=== PATIENT | male | born 1965 | race Caucasian/White ===

== ENCOUNTER 2019-01-23 11:04 | Inpatient (IN) | payer OTHER ==
[2019-01-22 15:24] VITALS: Ht 182.9 cm; Wt 98.9 kg
[~2019-01-23] VITALS: Ht 182.9 cm; Wt 98.9 kg
[2019-01-23] VITALS (31 sets, daily range): BP systolic 103–162; BP diastolic 72–112; PULSE 66–80; RESP 12–18
[~2019-01-23 11:04] MED LIST: SOD CHLORIDE 0.9% 1,000 ML IV SCH
[2019-01-23] MEDS ORDERED: LISI-471 ORAL (12:05)
[2019-01-23] MEDS ORDERED: TAMS0.4C2 ORAL (12:05)
--- NOTE | 2019-01-23 14:10 | RADRPT ---
Vent Rate: 73 bpm RR Interval: 0 msec AL Interval: 134 msec QRS Duration: 98 msec QT Interval: 408 msec QTC Interval: 449 msec P-R-T Arnold: 49 - 49 - 114 degrees Normal sinus rhythm T wave abnormality, consider inferior ischemia Abnormal ECG Electronically Signed By: Haresh Martinez
--- NOTE | 2019-01-23 14:23 | PREAC ---
Date/Time of Note Date/Time of Note DATE: 01/23/19 TIME: 14:21 Anesthesia Eval and Record Evaluation Time Pre-Procedure Interview DATE: 01/23/19 TIME: 14:21 Age 53 Sex male NPO: 8 hrs Preoperative diagnosis Right inguinal hernia Planned procedure Open hernia repair with mesh Past Medical History Past Medical History: Includes Cardio: HTN Pulm: Smoking Hx Surgery & Anesthesia Issues No known issue Meds Anticoagulation: No Beta Jazz within 24 hr: No Reason Beta Jazz not given: Pt. not on B-Jazz Reported Medications Lisinopril* (Lisinopril*) 20 Mg Tablet, 1 TAB ORAL DAILY 01/23/19 Tamsulosin Hcl* (Tamsulosin Hcl*) 0.4 Mg Cap.er.24h, 1 CAP ORAL HS 01/23/19 Current Medications Cefazolin Sodium/ Dextrose 50 ml @ 100 mls/hr PRE-OP IVPB ; Start 01/23/19 at 08 :00 Sodium Chloride 1,000 ml @ 75 mls/hr [id number] IV ; Start 01/23/19 at 08:00; Stop 01/23/19 at 20:00 Meds reviewed: Yes Allergies Coded Allergies: No Known Drug Allergy (Verified Allergy, Unknown, 01/23/19) Allergies Reviewed: Yes Labs/Studies Labs Reviewed: Reviewed by anesthesiologist Result Diagram: 01/23/19 1220 01/23/19 1220 Laboratory Tests 01/23/19 12:20 test: N/A Pre-procedure Exam Last vitals Vital Signs Date Temp Pulse Resp B/P (MAP) Pulse Ox O2 O2 Flow FiO2 Time Delivery Rate 01/23/19 98.6 77 16 147/100 98 Room Air 12:46 (116) Airway: Adequate mouth opening Mallampati: Mallampati II Teeth: Normal Lung: Normal Heart: Normal ASA Physical Status ASA physical status: 2 Emergency: None Planned Anesthetic General/MAC: ETT Planned Pain Management Parenteral pain med Pre-operative Attestations Prior to commencing anesthesia and surgery, the patient was re-evaluated, there was verification of: *The patient's identity *The results of appropriate recent lab work and preoperative vital signs *The above evaluation not changing prior to induction *Anesthetic plan, risk benefits, alternative and complications discussed with patient/family; questions answered; patient/family understands, accepts and wishes to proceed. TODD JOSUE MD Jan 23, 2019 14:23
[2019-01-23] MEDS ORDERED: POLYMYXIN/BACITRACIN 1L IRRIG ONE (14:26)
[2019-01-23] MEDS ORDERED: BUPIVACAINE 0.25% (MPF) 30 ML INJ ONE (14:26)
[2019-01-23] MEDS ORDERED: PROPOFOL 20 ML ONE (14:31)
[2019-01-23] MEDS ORDERED: MEPERIDINE 100 MG INJ ONE (14:31)
[2019-01-23] MEDS ORDERED: ROCURONIUM 50 MG INJ ONE (14:31)
[2019-01-23] MEDS ORDERED: LIDOCAINE 2% (SDV) 5 ML INJ ONE (14:31)
[2019-01-23] MEDS ORDERED: GLYCOPYRROLATE 0.4 MG INJ ONE ×3 (14:31→15:00)
[2019-01-23] MEDS ORDERED: SUCCINYLCHOLINE CHLORIDE 100 MG/5 ML SYG IV ONE (14:31)
[2019-01-23] MEDS ORDERED: NEOSTIGMINE 10 MG INJ ONE (15:00)
[2019-01-23] MEDS ORDERED: CEFAZOLIN 1 GM INJ ONE (15:00)
[2019-01-23] MEDS ORDERED: POLYMYXIN/BACITRACIN 1L IRRIG IRR ONE (15:19)
[2019-01-23] MEDS ORDERED: HYDROmorphONE 1 MG/5 ML IV SYRINGE IV PRN ×3 (15:30)
[2019-01-23] MEDS ORDERED: MIDAZOLAM 1 MG/ML 2 ML INJ IV PRN (15:30)
[2019-01-23] MEDS ORDERED: hydrALAzine 20 MG INJ IV PRN (15:30)
[2019-01-23] MEDS ORDERED: METOCLOPRAMIDE 10 MG INJ IV PRN (15:30)
[2019-01-23] MEDS ORDERED: OXYCODONE/ACETAMINOPHEN (5/325) TAB PO PRN ×2 (15:30)
[2019-01-23] MEDS ORDERED: ONDANSETRON 4 MG INJ IV PRN (15:30)
[2019-01-23] MEDS ORDERED: MEPERIDINE 25 MG INJ IV PRN (15:30)
[2019-01-23] MEDS ORDERED: FENTAnyl 50 MCG/ML VIAL IV PRN ×3 (15:30)
[2019-01-23] MEDS ORDERED: DIPHENHYDRAMINE 50 MG INJ IV PRN (15:30)
[2019-01-23] MEDS ORDERED: EPHEDrine SULFATE 50 MG/5 ML SYG IV PRN (15:30)
[2019-01-23] MEDS ORDERED: LABETALOL HCL 20MG INJ IV PRN (15:30)
--- NOTE | 2019-01-23 15:41 | OPR ---
Date/Time of Note Date/Time of Note DATE: 01/23/19 TIME: 15:36 Operative Report Procedure Date: Jan 23, 2019 Preoperative Diagnosis large incarcerated right inguinal hernia Postoperative Diagnosis same Operation/Procedure Performed 1. open right large incarcerated inguinal hernia repair with large ultrapro hernia system mesh 2. subcutaneous injection of therapeutic local anesthesia Surgeon see signature line Basket Filler none Anesthesia Type: general Estimated Blood Loss: 10 - 50 ml's Transfusion none Specimen hernia sac Grafts/Implants none Complications none Pt Condition Post Procedure: stable Indications This is a 53-year-old male with incarcerated right inguinal hernia. He has pain and request surgical repair. Risks alternatives benefits and percent were discussed the patient. In particular due to the very large incarcerated inguinal hernia potential complications including but not limited to bleeding infection mesh infection recurrence of hernia need for additional operations were discussed the patient. Ample time was given for questions and all questions were answered and patient consents to the operation. Procedure Description Patient is taken to the OR and prepped and draped in usual sterile fashion. Surgical time was performed. IV antibiotics given. Right inguinal oblique incision made with a 10 blade. Dissection with cautery carried onto the external fascia. Upon initial inspection there is a very large incarcerated hernia. The external oblique is opened with a 15 blade. This incision extended medial fairly lateral sparely with Metzenbaum scissors. Cord structures identified and encircled with a [place] drain. A large indirect hernia is identified and lysis of adhesions performed to manually reduce the hernia. The excess hernia sac was then suture ligatured with 0 Vicryl. The excess hernia sac was then excised and sent for specimen. The large ultra pro hernia system mesh was then used to secure and posterior this area and block this area. Running 0 Prolene from the pubic tubercle along the shelving is unlimited was used to secure the disc portion of the ultra pro hernia system mesh in place. Superiorly the disc is secured with interrupted 3-0 Vicryl. [place] mesh is secured in a similar fashion with a running Prolene from the pubic tubercle along the shelving is unlimited. Superiorly the mesh was secured to enter oblique with interrupted 0 Vicryl. Straps are created and reapproximated around the cord structures to recreate the inguinal ring with interrupted 0 Prolene. Externally fascia is closed with running 3-0 Vicryl. No's fascia was closed with interrupted 3-0 Vicryl. Skin is closed with inzorb observable skin stap ler. Delvin MCCORMICK Jan 23, 2019 15:41
[2019-01-23] MEDS ORDERED: HYDROCODONE/APAP (5/325) TAB PO ONE (16:00)
[2019-01-23] MEDS: CEFAZOLIN 2 GM/50 ML (PMX) 50 ML IVPB SCH ×2 (16:22→17:19)
[2019-01-23] MEDS ORDERED: NALOXONE (0.4 MG/ML) INJ ONE (17:11)
--- NOTE | 2019-01-23 17:12 | PAC ---
Date/Time of Note Date/Time of Note DATE: 01/23/19 TIME: 17:11 Post-Anesthesia Notes Post-Anesthesia Note Last documented vital signs Vital Signs Date Temp Pulse Resp B/P (MAP) Pulse Ox O2 O2 Flow FiO2 Time Delivery Rate 01/23/19 67 13 148/95 95 Nasal 2.0 16:47 (112) Cannula 01/23/19 98.1 15:52 Activity: WNL Respiratory function: WNL Cardiovascular function: WNL Mental status: Baseline Pain reasonably controlled: Yes Hydration appropriate: Yes Nausea/Vomiting absent: Yes TODD JOSUE MD Jan 23, 2019 17:12
[2019-01-23] MEDS ORDERED: NALOXONE (0.4 MG/ML) INJ IV ONE (17:30)
[2019-01-23] MEDS ORDERED: morphine 2 MG INJ IV PRN (18:00)
[2019-01-23] MEDS: SOD CHLORIDE 0.45% 1,000 ML IV SCH ×2 (19:45→20:00)
[2019-01-24] MEDS ORDERED: ACETAMINOPHEN 500 MG TAB PO PRN
[2019-01-24] MEDS ORDERED: ONDANSETRON 4 MG INJ IV PRN
[2019-01-24] MEDS ORDERED: hydrALAzine 20 MG INJ IV PRN
[2019-01-24 00:56] VITALS: BP 129/77; PULSE 86; RESP 18
--- NOTE | 2019-01-24 02:56 | HP ---
DATE OF ADMISSION: 01/23/2019 CHIEF COMPLAINT AND HISTORY OF PRESENT ILLNESS: The patient is a 53-year-old gentleman with a histor y of hypertension, BPH, who had been seeing Dr. Francois as an outpatient for incarcerated right inguinal hernia. The patient was brought into hospital today and underwent open right large incarcerated ingu inal hernia repair with large mesh. The patient had significant postoperative pain and is being admi tted for further evaluation and management. The patient denied any chest pain or shortness of breath . No history of nausea, vomiting. No history of headache, dizziness, syncope. No history of leg pa in. No history of leg edema. No history of focal weakness. REVIEW OF SYSTEMS: Other than postoperative pain, the rest of review of systems is unremarkable. PAST MEDICAL HISTORY: As stated above. ALLERGIES: NO KNOWN DRUG ALLERGIES. FAMILY HISTORY: Noncontributory. SOCIAL HISTORY: History of smoking. PHYSICAL EXAMINATION: GENERAL: Reveals patient to be awake and responsive. VITAL SIGNS: At the time of admission, temperature 98.6, pulse 77, respirations 16, blood pressure 1 47/100, O2 sat 98 on room air. HEENT: Atraumatic, normocephalic. Conjunctivae and lids are normal. Oropharynx is clear. NECK: No mass. LUNGS: Clear. CARDIOVASCULAR: S1, S2 normal. ABDOMEN: Soft, nondistended. EXTREMITIES: No leg edema. NEUROLOGIC: The patient is awake, alert with no gross focal deficit. LABORATORY DATA: Sodium 145, potassium 4.4, BUN 27, creatinine 1.5, glucose 94. Liver enzymes are n ormal. WBC 5.4, hemoglobin 13.6, platelet 217. Coagulation profile is normal. DIAGNOSTIC DATA: Chest x-ray did not reveal any acute changes, mild cardiomegaly. IMPRESSION: 1. Large incarcerated inguinal hernia, status post open right large incarcerated inguinal hernia rep air with mesh. 2. Hypertension. 3. Chronic kidney disease stage II/III. PLAN: The patient will be admitted to the medical floor. The patient will be started on diet and wi ll be given IV fluids, Tylenol, Percocet and IV morphine for pain control. The patient will be brad nued on postoperative fluid. We will do followup BMP. If the patient's creatinine gets worse, then nephrology consult will be obtained. We will also add p.r.n. hydralazine. We will use SCD for DVT p rophylaxis. The patient's home medications including lisinopril and Flomax will be resumed. Further recommendation will depend on patient's hospital course. Dictated By: STEVE العلي/RENEA Conf#: [id number] DID#: [id number] CC: TRACEY FRANCOIS MD;*EndCC*
[2019-01-24] MEDS: CEFAZOLIN 2 GM/50 ML (PMX) 50 ML IVPB SCH (03:46)
[2019-01-24 05:00] VITALS: BP 134/76; PULSE 75; RESP 18
[2019-01-24] MEDS: SOD CHLORIDE 0.45% 1,000 ML IV SCH ×2 (05:45→16:01)
[2019-01-24 08:00] VITALS: BP 141/81; PULSE 80; RESP 18
[2019-01-24] MEDS: OXYCODONE/ACETAMINOPHEN (5/325) TAB PO PRN ×2 (08:38→14:07)
[2019-01-24 08:40] VITALS: BP 145/83; PULSE 85; RESP 18
[2019-01-24] MEDS: LISINOPRIL 20 MG TAB PO SCH (08:41)
--- NOTE | 2019-01-24 10:26 | PN ---
Date/Time of Note Date/Time of Note DATE: 01/24/19 TIME: 10:25 Assessment/Plan VTE Prophylaxis Risk score (from Ns)>0 risk: 3 SCD applied (from Ns): Yes Pharmacological prophylaxis: LMWH Lines/Catheters IV Catheter Type (from Nrs): Peripheral IV Assessment/Plan Hospital Course 1. Large incarcerated inguinal hernia, status post open right large incarcerated inguinal hernia repair with mesh. 2. Hypertension. 3. Chronic kidney disease stage II/III. Result Diagram: 01/23/19 1220 01/24/19 0430 Results 24hrs Laboratory Tests Test 01/23/19 12:20 01/24/19 04:30 White Blood Count 5.4 Red Blood Count 4.78 Hemoglobin 13.6 L Hematocrit 42.2 Mean Corpuscular Volume 88.3 Mean Corpuscular Hemoglobin 28.5 L Mean Corpuscular Hemoglobin Concent 32.2 Red Cell Distribution Width 13.5 Platelet Count 217 Mean Platelet Volume 11.1 H Immature Granulocytes % 0.400 Neutrophils % 71.8 Lymphocytes % 17.8 Monocytes % 7.4 Eosinophils % 1.9 Basophils % 0.7 Nucleated Red Blood Cells % 0.0 Immature Granulocytes # 0.020 Neutrophils # 3.9 Lymphocytes # 1.0 Monocytes # 0.4 Eosinophils # 0.1 Basophils # 0.0 Nucleated Red Blood Cells # 0.0 Prothrombin Time 12.5 Prothrombin Time Ratio 1.0 INR International Normalized Ratio 0.92 Activated Partial Thromboplast Time 27.8 Sodium Level 144 139 Potassium Level 4.4 3.9 Chloride Level 107 104 Carbon Dioxide Level 28 27 Anion Gap 9 8 Blood Urea Nitrogen 27 H 26 H Creatinine 1.55 H 1.42 H Est Glomerular Filtrat Rate mL/min 47 L 52 L Glucose Level 94 104 Calcium Level 9.3 8.6 Total Bilirubin 1.1 Direct Bilirubin 0.00 Indirect Bilirubin 1.1 Aspartate Amino Transf (AST/SGOT) 43 Alanine Aminotransferase (ALT/SGPT) 34 Alkaline Phosphatase 78 Total Protein 7.5 Albumin 4.3 Globulin 3.20 Albumin/Globulin Ratio 1.34 Subjective 24 Hr Interval Summary Free Text/Dictation Patient has pain at area of surgery, eating Exam/Review of Systems Exam Vitals Vital Signs Date Temp Pulse Resp B/P (MAP) Pulse Ox O2 O2 Flow FiO2 Time Delivery Rate 01/24/19 98.4 85 18 145/83 92 Nasal 08:40 (103) Cannula 01/24/19 2.0 05:00 Intake and Output 01/23/19 01/23/19 01/24/19 1515:00 23:00 07:00 IntakeIntake Total 300 ml 1000 ml OutputOutput Total 210 ml 300 ml BalanceBalance 90 ml 700 ml Constitutional: well developed Head: normocephalic, atraumatic Neck: supple Respiratory: clear to auscultation Cardiovascular: regular rate and rhythm Gastrointestinal: soft, non-tender Extremities: normal pulses Results Results 24hrs Laboratory Tests Test 01/23/19 12:20 01/24/19 04:30 White Blood Count 5.4 Red Blood Count 4.78 Hemoglobin 13.6 L Hematocrit 42.2 Mean Corpuscular Volume 88.3 Mean Corpuscular Hemoglobin 28.5 L Mean Corpuscular Hemoglobin Concent 32.2 Red Cell Distribution Width 13.5 Platelet Count 217 Mean Platelet Volume 11.1 H Immature Granulocytes % 0.400 Neutrophils % 71.8 Lymphocytes % 17.8 Monocytes % 7.4 Eosinophils % 1.9 Basophils % 0.7 Nucleated Red Blood Cells % 0.0 Immature Granulocytes # 0.020 Neutrophils # 3.9 Lymphocytes # 1.0 Monocytes # 0.4 Eosinophils # 0.1 Basophils # 0.0 Nucleated Red Blood Cells # 0.0 Prothrombin Time 12.5 Prothrombin Time Ratio 1.0 INR International Normalized Ratio 0.92 Activated Partial Thromboplast Time 27.8 Sodium Level 144 139 Potassium Level 4.4 3.9 Chloride Level 107 104 Carbon Dioxide Level 28 27 Anion Gap 9 8 Blood Urea Nitrogen 27 H 26 H Creatinine 1.55 H 1.42 H Est Glomerular Filtrat Rate mL/min 47 L 52 L Glucose Level 94 104 Calcium Level 9.3 8.6 Total Bilirubin 1.1 Direct Bilirubin 0.00 Indirect Bilirubin 1.1 Aspartate Amino Transf (AST/SGOT) 43 Alanine Aminotransferase (ALT/SGPT) 34 Alkaline Phosphatase 78 Total Protein 7.5 Albumin 4.3 Globulin 3.20 Albumin/Globulin Ratio 1.34 Medications Medication Current Medications Cefazolin Sodium/ Dextrose 50 ml @ 100 mls/hr PRE-OP IVPB ; Start 01/23/19 at 08:00 Morphine Sulfate (morphine) 2 mg Q2H PRN IV SEVERE PAIN LEVEL 7-10 Last administered on 01/24/19at 09:33; Admin Dose 2 MG; Start 01/23/19 at 18:00 Sodium Chloride 1,000 ml @ 100 mls/hr Q10H IV Last administered on 01/24/19at 05:45; Admin Dose 100 MLS/HR; Start 01/23/19 at 19:45 Acetaminophen (Tylenol Tab) 500 mg Q6H PRN PO MILD PAIN(1-3)OR ELEVATED TEMP; Start 01/24/19 at 00:00 Lisinopril (Zestril) 20 mg DAILY PO Last administered on 01/24/19at 08:41; Admin Dose 20 MG; Start 01/24/19 at 09:00 Tamsulosin HCl (Flomax) 0.4 mg HS PO ; Start 01/24/19 at 21:00 Hydralazine HCl (Apresoline) 10 mg Q4H PRN IV BP>150/95; Start 01/24/19 at 00:00 Oxycodone/ Acetaminophen (Percocet (5/ 325)) 1 tab Q4H PRN PO MODERATE PAIN LEVEL 4-6 Last administered on 01/24/19at 08:38; Admin Dose 1 TAB; Start 01/24/19 at 00:00 Ondansetron HCl (Zofran Inj) 4 mg Q6H PRN IV NAUSEA AND/OR VOMITING; Start 01/24/19 at 00:00 PRICILLA HERNANDES Jan 24, 2019 10:26
[2019-01-24] MEDS: KETOROLAC 30 MG INJ IV SCH ×2 (14:07→20:21)
--- NOTE | 2019-01-24 16:45 | PN ---
DATE: 01/24/2019 Postop day #1, status post repair of the very large incarcerated right inguinal hernia with implantat ion of the mesh. SUBJECTIVE: The patient has been complaining of too much pain, so much that he hardly can get out of bed and walk around. OBJECTIVE: GENERAL: Awake, alert, lying down in a semi-sitting position. VITAL SIGNS: Temperature today at maximum 98.9, heart rate is between 75 and 85, respiration 18, blo od pressure 134/76, saturation 92% to 96% on 2 liter nasal cannula. CARDIOVASCULAR: Regular. ABDOMEN: Bowel sounds present. GENITOURINARY: Dressing is bulky but was intact and the right scrotum is quite swollen compared to t he left side and it is slightly reddish in color for the skin on top of it and it is tender on pressu re. I assume there is fluid accumulated in this. LABORATORY DATA: There is a chemistry lab done which shows that the BUN, which was 27, today is 26. Creatinine was 155 yesterday and today is 142 and still is high. CBC was not done. The patient has been able to urinate. ASSESSMENT AND PLAN: Postop day #1. There is swelling of the right scrotum. Apparently, patient van s had inguinal scrotal hernia repair with mesh. The patient has too much pain; therefore, we are goi ng to add Toradol 30 mg IV q.6h. around the clock to the pain regimen and we will see how it is going to control the patient's pain so that the patient would be able to get out of bed and walk around. I also advised the nurse to apply ice bag over the scrotum and right groin area. we will keep the pa tient for at least one more night. Dictated By: YASMEEN PINA MD PS/NTS Conf#: [id number] DID#: [id number] CC: TRACEY MCCORMICK MD;*EndCC*
[2019-01-24 19:50] VITALS: BP 138/77; PULSE 84; RESP 18
[2019-01-24] MEDS: TAMSULOSIN (SR) 0.4 MG CAP PO SCH (20:21)
[2019-01-25] MEDS: SOD CHLORIDE 0.45% 1,000 ML IV SCH ×4 (01:45→21:45)
[2019-01-25] MEDS: KETOROLAC 30 MG INJ IV SCH ×5 (02:00→20:42)
[2019-01-25 02:30] VITALS: BP 149/90; PULSE 84; RESP 18
[2019-01-25 07:43] VITALS: BP 145/89; PULSE 62; RESP 18
[2019-01-25] MEDS: LISINOPRIL 20 MG TAB PO SCH (09:00)
--- NOTE | 2019-01-25 11:59 | PN ---
Date/Time of Note Date/Time of Note DATE: 01/25/19 TIME: 11:58 Assessment/Plan VTE Prophylaxis Risk score (from Ns)>0 risk: 7 SCD applied (from Ns): Yes Pharmacological prophylaxis: LMWH Lines/Catheters IV Catheter Type (from Nrsg): Peripheral IV Urinary Cath still in place: No Assessment/Plan Hospital Course 1. Large incarcerated inguinal hernia, status post open right large inca rcerated inguinal hernia repair with mesh. 2. Hypertension. 3. Chronic kidney disease stage II/III. Result Diagram: 01/23/19 1220 01/24/19 0430 Subjective 24 Hr Interval Summary Free Text/Dictation Still has pain related to the surgery, not very active yet Exam/Review of Systems Exam Vitals Vital Signs Date Temp Pulse Resp B/P (MAP) Pulse Ox O2 O2 Flow FiO2 Time Delivery Rate 01/25/19 98.8 62 18 145/89 90 Room Air 07:43 (107) 01/24/19 2.0 05:00 Intake and Output 01/24/19 01/24/19 01/25/19 1515:00 23:00 07:00 IntakeIntake Total 800 ml 1240 ml 1120 ml OutputOutput Total 900 ml 300 ml 800 ml BalanceBalance -100 ml 940 ml 320 ml Constitutional: well developed Head: normocephalic, atraumatic Neck: supple Respiratory: diminished breath sounds Cardiovascular: regular rate and rhythm Gastrointestinal: soft, non-tender Extremities: normal pulses Medications Medication Current Medications Cefazolin Sodium/ Dextrose 50 ml @ 100 mls/hr PRE-OP IVPB ; Start 01/23/19 at 08:00 Morphine Sulfate (morphine) 2 mg Q2H PRN IV SEVERE PAIN LEVEL 7-10 Last administered on 01/24/19at 09:33; Admin Dose 2 MG; Start 01/23/19 at 18:00 Sodium Chloride 1,000 ml @ 100 mls/hr Q10H IV Last administered on 01/25/19at 03:39; Admin Dose 100 MLS/HR; Start 01/23/19 at 19:45 Acetaminophen (Tylenol Tab) 500 mg Q6H PRN PO MILD PAIN(1-3)OR ELEVATED TEMP; Start 01/24/19 at 00:00 Lisinopril (Zestril) 20 mg DAILY PO Last administered on 3/10/19at 09:00; Admin Dose 20 MG; Start 01/24/19 at 09:00 Tamsulosin HCl (Flomax) 0.4 mg HS PO Last administered on 01/24/19 20:21; Admin Dose 0.4 MG; Start 01/24/19 at 21:00 Hydralazine HCl (Apresoline) 10 mg Q4H PRN IV BP>150/95; Start 01/24/19 at 00:00 Oxycodone/ Acetaminophen (Percocet (5/ 325)) 1 tab Q4H PRN PO MODERATE PAIN LEVEL 4-6 Last administered on 01/24/19 14:07; Admin Dose 1 TAB; Start 01/24/19 at 00:00 Ondansetron HCl (Zofran Inj) 4 mg Q6H PRN IV NAUSEA AND/OR VOMITING; Start 01/24/19 at 00:00 Ketorolac Tromethamine (Toradol) 30 mg Q6H IV Last administered on 01/25/19 08:59; Admin Dose 30 MG; Start 01/24/19 at 14:00; Stop 01/27/19 at 13:59 PRICILLA HERNANDES Y Jan 25, 2019 11:59
[2019-01-25 14:00] VITALS: BP 142/79; PULSE 80; RESP 18
--- NOTE | 2019-01-25 17:00 | PN ---
DATE: 01/25/2019 Postop day #2 status post right large inguinal - scrotal hernia repair with mesh. SUBJECTIVE: Feels better today, has not been out of bed, has passed gas, urinated without any proble m. No bowel movement. OBJECTIVE: GENERAL: Alert, awake. VITAL SIGNS: Temperature maximum 98.9 today. The last one was 97.6. Heart rate 62 to 80, respiratio n 18, blood pressure 142/79, saturation was 90% room air. HEART: Regular. LUNGS: Clear. ABDOMEN: Soft. Dressing is intact. GENITOURINARY: The swelling and edema of the right scrotum is I would say 40% better today. It is s ofter and is minimally tender on movement. ASSESSMENT AND PLAN: The patient is improving. The patient can be discharged home today. Prescript ion for [place] has been written by Dr. Mccormick in the chart. The patient is to call Dr. Mccormick - Dr. Lan' office and make an appointment for followup. I recommended to put ice bag as he was given the same i n the hospital to keep it over the right groin and right scrotum, to drink more water and have more s alad to prevent constipation. Dictated By: YASMEEN PINA MD PS/NTS Conf#: [id number] DID#: [id number] CC: STEVE ENAMORADO MD; TRACEY MCCORMICK MD;*EndCC*
[2019-01-25 19:51] VITALS: BP 135/86; PULSE 100; RESP 18
[2019-01-25] MEDS: TAMSULOSIN (SR) 0.4 MG CAP PO SCH (20:42)
[2019-01-26] MEDS: SOD CHLORIDE 0.45% 1,000 ML IV SCH (02:00)
[2019-01-26] MEDS: KETOROLAC 30 MG INJ IV SCH ×3 (02:00→14:10)
[2019-01-26 02:02] VITALS: BP 155/94; PULSE 89; RESP 18
[2019-01-26 07:28] VITALS: BP 132/92; PULSE 82; RESP 18
--- NOTE | 2019-01-26 08:20 | PN ---
Date/Time of Note Date/Time of Note DATE: 01/26/19 TIME: 08:19 Assessment/Plan VTE Prophylaxis Risk score (from Nsg)>0 risk: 7 SCD applied (from Nsg): Yes Pharmacological prophylaxis: other Lines/Catheters IV Catheter Type (from Nrsg): Peripheral IV Urinary Cath still in place: No Assessment/Plan Assessment/Plan s/p inguinal hernia repair with pain control issues and was admitted now doing better ok to dc home and ok to shower Result Diagram: 01/26/1944501/26/196 Results 24hrs Laboratory Tests Test 01/26/19 04:46 White Blood Count 7.3 # Red Blood Count 4.68 L Hemoglobin 13.5 L Hematocrit 40.4 L Mean Corpuscular Volume 86.3 Mean Corpuscular Hemoglobin 28.8 L Mean Corpuscular Hemoglobin Concent 33.4 Red Cell Distribution Width 13.2 Platelet Count 202 Mean Platelet Volume 11.5 H Immature Granulocytes % 0.500 H Neutrophils % 75.0 Lymphocytes % 12.2 L Monocytes % 10.4 Eosinophils % 1.5 Basophils % 0.4 Nucleated Red Blood Cells % 0.0 Immature Granulocytes # 0.040 H Neutrophils # 5.5 Lymphocytes # 0.9 Monocytes # 0.8 Eosinophils # 0.1 Basophils # 0.0 Nucleated Red Blood Cells # 0.0 Sodium Level 139 Potassium Level 3.9 Chloride Level 103 Carbon Dioxide Level 26 Anion Gap 10 Blood Urea Nitrogen 25 H Creatinine 1.32 H Est Glomerular Filtrat Rate mL/min 56 L Glucose Level 95 Calcium Level 8.8 Subjective 24 Hr Interval Summary Free Text/Dictation doing well finally pain tolerable from large hernia repair Exam/Review of Systems Exam Vitals Vital Signs Date Temp Pulse Resp B/P (MAP) Pulse Ox O2 O2 Flow FiO2 Time Delivery Rate 01/26/19 98.1 82 18 132/92 99 Room Air 07:28 (105) 01/24/19 2.0 05:00 Intake and Output 01/25/19 01/25/19 01/26/19 1515:00 23:00 07:00 IntakeIntake Total 800 ml 1550 ml 1400 ml OutputOutput Total 900 ml 2400 ml 1400 ml BalanceBalance -100 ml -850 ml 0 ml Exam c/d/i Results Results 24hrs Laboratory Tests Test 01/26/19 04:46 White Blood Count 7.3 # Red Blood Count 4.68 L Hemoglobin 13.5 L Hematocrit 40.4 L Mean Corpuscular Volume 86.3 Mean Corpuscular Hemoglobin 28.8 L Mean Corpuscular Hemoglobin Concent 33.4 Red Cell Distribution Width 13.2 Platelet Count 202 Mean Platelet Volume 11.5 H Immature Granulocytes % 0.500 H Neutrophils % 75.0 Lymphocytes % 12.2 L Monocytes % 10.4 Eosinophils % 1.5 Basophils % 0.4 Nucleated Red Blood Cells % 0.0 Immature Granulocytes # 0.040 H Neutrophils # 5.5 Lymphocytes # 0.9 Monocytes # 0.8 Eosinophils # 0.1 Basophils # 0.0 Nucleated Red Blood Cells # 0.0 Sodium Level 139 Potassium Level 3.9 Chloride Level 103 Carbon Dioxide Level 26 Anion Gap 10 Blood Urea Nitrogen 25 H Creatinine 1.32 H Est Glomerular Filtrat Rate mL/min 56 L Glucose Level 95 Calcium Level 8.8 Medications Medication Current Medications Cefazolin Sodium/ Dextrose 50 ml @ 100 mls/hr PRE-OP IVPB ; Start 01/23/19 at 08:00 Morphine Sulfate (morphine) 2 mg Q2H PRN IV SEVERE PAIN LEVEL 7-10 Last administered on 01/24/19at 09:33; Admin Dose 2 MG; Start 01/23/19 at 18:00 Sodium Chloride 1,000 ml @ 100 mls/hr Q10H IV Last administered on 01/26/19at 02:00; Admin Dose 100 MLS/HR; Start 01/23/19 at 19:45 Acetaminophen (Tylenol Tab) 500 mg Q6H PRN PO MILD PAIN(1-3)OR ELEVATED TEMP; Start 01/24/19 at 00:00 Lisinopril (Zestril) 20 mg DAILY PO Last administered on 01/25/19at 09:00; Admin Dose 20 MG; Start 01/24/19 at 09:00 Tamsulosin HCl (Flomax) 0.4 mg HS PO Last administered on 01/25/19at 20:42; Admin Dose 0.4 MG; Start 01/24/19 at 21:00 Hydralazine HCl (Apresoline) 10 mg Q4H PRN IV BP>150/95; Start 01/24/19 at 00:00 Oxycodone/ Acetaminophen (Percocet (5/ 325)) 1 tab Q4H PRN PO MODERATE PAIN LEVEL 4-6 Last administered on 01/24/19at 14:07; Admin Dose 1 TAB; Start 01/24/19 at 00:00 Ondansetron HCl (Zofran Inj) 4 mg Q6H PRN IV NAUSEA AND/OR VOMITING; Start 01/24/19 at 00:00 Ketorolac Tromethamine (Toradol) 30 mg Q6H IV Last administered on 01/25/19at 20:42; Admin Dose 30 MG; Start 01/24/19 at 14:00; Stop 01/27/19 at 13:59 Delvin MCCORMICK Jan 26, 2019 08:20
[2019-01-26] MEDS: LISINOPRIL 20 MG TAB PO SCH (08:37)
[2019-01-26] MEDS ORDERED: OXYC-438 PO (14:39)
--- NOTE | 2019-01-26 14:41 | DS ---
Date/Time of Note Date/Time of Note DATE: 01/26/19 TIME: 14:40 Discharge Summary Admission/Discharge Info Admit Date/Time Jan 24, 2019 at 10:30 Discharge Date/Time Patient Condition: Stable Hx of Present Illness The patient is a 53-year-old gentleman with a history of hypertension, BPH, who had been seeing Dr. Francois as an outpatient for incarcerated right inguinal hernia. The patient was brought into hospital today and underwent open right large incarcerated inguinal hernia repair with large mesh. The patient had significant postoperative pain and is being admitted for further evaluation and management. The patient denied any chest pain or shortness of breath. No history of nausea, vomiting. No history of headache, dizziness, syncope. No history of leg pain. No history of leg edema. No history of focal weakness. Hospital Course Large incarcerated inguinal hernia, status post open right large incarcerated inguinal hernia repair with mesh. Hypertension. Chronic kidney disease stage II/III. Plan of care discussed with Dr. Patel Home Meds Reported Medications Lisinopril* (Lisinopril*) 20 Mg Tablet, 1 TAB ORAL DAILY 01/23/19 Tamsulosin Hcl* (Tamsulosin Hcl*) 0.4 Mg Cap.er.24h, 1 CAP ORAL HS 01/23/19 Follow-up Plan Follow-up with Dr. Francois in 2 weeks, follow-up with PMD in 2 weeks, BMP at [facility]D office. Primary Care Provider Not On Staff Doctor Time spent on discharge: > 30 minutes Pending Labs Laboratory Tests Test 01/26/19 04:46 White Blood Count 7.3 10^3/ul (4.8-10.8) Red Blood Count 4.68 10^6/ul (4.70-6.10) Hemoglobin 13.5 g/dl (14.0-18.0) Hematocrit 40.4 % (42.0-52.0) Mean Corpuscular Volume 86.3 fl (82.0-101.0) Mean Corpuscular Hemoglobin 28.8 pg (29.0-33.0) Mean Corpuscular Hemoglobin Concent 33.4 g/dl (32.0-37.0) Red Cell Distribution Width 13.2 % (11.5-14.5) Platelet Count 202 10^3/UL (140-415) Mean Platelet Volume 11.5 fl (7.4-10.4) Immature Granulocytes % 0.500 % (0.001-0.429) Neutrophils % 75.0 % (39.0-77.0) Lymphocytes % 12.2 % (15.0-51.0) Monocytes % 10.4 % (0.0-11.0) Eosinophils % 1.5 % (0.0-7.0) Basophils % 0.4 % (0.0-2.0) Nucleated Red Blood Cells % 0.0 /100WBC (0.0-0.0) Immature Granulocytes # 0.040 10^3/ul (0.0-0.031) Neutrophils # 5.5 10^3/ul (1.6-7.5) Lymphocytes # 0.9 10^3/ul (0.8-2.9) Monocytes # 0.8 10^3/ul (0.3-0.9) Eosinophils # 0.1 10^3/ul (0.0-0.5) Basophils # 0.0 10^3/ul (0.0-0.1) Nucleated Red Blood Cells # 0.0 10^3/ul (0.0-0.0) Sodium Level 139 mmol/L (135-144) Potassium Level 3.9 mmol/L (3.5-5.1) Chloride Level 103 mmol/L (97-110) Carbon Dioxide Level 26 mmol/L (21-31) Anion Gap 10 (5-13) Blood Urea Nitrogen 25 mg/dl (7-20) Creatinine 1.32 mg/dl (0.61-1.24) Est Glomerular Filtrat Rate mL/min 56 mL/min (>60) Glucose Level 95 mg/dl (70-220) Calcium Level 8.8 mg/dl (8.4-10.2) KALYN PETERS Jan 26, 2019 14:41
== END 2019-01-26 15:15 | disposition home or self-care (01) | DRG 352 ==
LOC: SDS 11:04 → REC 17:58 → SDS 17:58 → MS1 18:52 → OBSVTOIN 01-24 10:30
PROVIDERS: ADMIT Surgery; ATTEND Surgery
PROC: 0YU50JZ Supplement Right Inguinal Region with Synthetic Substitute, Open Approach (ICD-10-PCS; principal; 2019-01-23 14:30)
DX: K40.30 Unilateral inguinal hernia, with obstruction, without gangrene, not specified as recurrent (principal); N40.0 Benign prostatic hyperplasia without lower urinary tract symptoms; I12.9 Hypertensive chronic kidney disease with stage 1 through stage 4 chronic kidney disease, or unspecified chronic kidney disease; N18.3 Chronic kidney disease, stage 3 (moderate); N50.89 Other specified disorders of the male genital organs; G89.18 Other acute postprocedural pain
CPT/HCPCS: 71045; 80048; 80053; 85025; 85610; 85730; 88302; 93005; C1781; G0378; J0360; J0690; J1170; J1885; J2175; J2270; J2310; J2405; J2710; J3010